=== PATIENT | female | born 1990 | race Caucasian/White ===

== ENCOUNTER 2017-07-08 06:54 | Observation (INO) | payer OTHER ==
[~2017-07-08] VITALS: Ht 165.1 cm; Wt 55.7 kg
[~2017-07-08 06:54] MED LIST: NOHOMEMEDS
[2017-07-08 07:22] LABS: HEMATOCRIT 34.8 % (36.0-46.0); MCH 30.1 PG (29.0-34.0); MCHC 33.9 G/DL (30.0-36.0); MCV 88.8 FL (83-99); MEAN PLAT.VOLUME 10.8 uM^3 (9.5-12.4); PLATELET COUNT 222 K/uL (156-360); RBC DIS.WIDTH-CV 12.1 % (11.8-14.6); RBC DIS.WIDTH-SD 39.3 % (39-53); RED BLOOD COUNT 3.92 M/uL (3.80-5.20); WHITE BLOOD COUNT 7.6 K/uL (4.1-10.2)
[2017-07-08 07:29] LABS: ADD MIUA? YES; BILIRUBIN NEGATIVE; BLOOD NEGATIVE; COLOR YELLOW ((YELLOW)); GLUCOSE (STRIP) NEGATIVE; KETONES NEGATIVE; LEUKOCYTES SMALL; NITRITE NEGATIVE; PROTEIN (STRIP) 30; SPECIFIC GRAVITY 1.028 (1.000-1.030); UROBILINOGEN 0.2 MG/DL (0.2-1.0)
[2017-07-08 07:56] LABS: ANION GAP 8 MEQ/L (2-14); CHLORIDE 104 MEQ/L (99-109); GFR ESTIMATE (CALCULATED) > 59 mL/min/; GLUCOSE 102 mg/dL (70-99); POTASSIUM 3.4 MEQ/L (3.7-5.4); SAMPLE HEMOLYSIS CHECK 0; SAMPLE ICTERIC CHECK 0; SAMPLE LIPEMIA CHECK 0; SODIUM 136 MEQ/L (136-147); UREA NITROGEN (BUN) 15 mg/dL (9-23)
[2017-07-08 08:39] LABS: QUANTITATIVE HCG 19183.6 MIU/ML
[2017-07-08 08:42] LABS: BACTERIA 1+ /HPF; CASTS NONE SEEN /LPF; CRYSTALS NONE SEEN; EPITHELIAL CELLS 1+ /HPF; MUCUS NONE SEEN /LPF; RED BLOOD CELLS NONE SEEN /HPF (0-5); UCUL ADDED? NO; WHITE BLOOD CELLS 0-5 /HPF (0-5)
[2017-07-08] MEDS ORDERED: PRENATAL TABLE1 EAC3 PO (10:17)
[2017-07-08 14:46] VITALS: BP 98/68
[2017-07-08 20:35] VITALS: BP 101/58
[2017-07-08 23:46] VITALS: BP 111/69
[2017-07-09 07:22] VITALS: BP 101/53
[2017-07-09] MEDS ORDERED: CEPHALEXIN500 MG PO (10:34)
== END 2017-07-09 12:26 | disposition home or self-care (01) ==
LOC: EME 06:54 → EDOF 11:41 → ENRESERV 11:54 → EDOF 12:07 → 5WEST 13:41 → ENPENDDIS 07-09 → 5WEST 07-09 12:26
DX: O26.831 Pregnancy related renal disease, first trimester (principal); N13.30 Unspecified hydronephrosis; N20.0 Calculus of kidney; Z87.442 Personal history of urinary calculi; R30.0 Dysuria; Z3A.01 Less than 8 weeks gestation of pregnancy
CPT/HCPCS: 76770; 76801; 80048; 81003; 82365 90; 84702; 85027; 87077; 87086; 87186; 99281; 99285; G0378; J1885; J2270; J2405; J7030; Q0169

== ENCOUNTER 2018-02-23 08:30 | Inpatient (IN) | payer OTHER ==
[2018-02-23] VITALS (8 sets, daily range): BP systolic 105–117; BP diastolic 59–80
[~2018-02-23] VITALS: Ht 165.1 cm; Wt 70.8 kg
[~2018-02-23 08:30] MED LIST changes: +CEPHALEXIN500 MG PO; +PRENATAL TABLE1 EAC3 PO; +TUMS ULTRA ST1177 MG PO
[2018-02-23 10:27] LABS: BASOPHIL (%) 0.4 % (0-1); EOSINOPHIL (%) 0.8 % (0-5); EOSINOPHIL COUNT 0.1 K/uL (0-0.3); HEMATOCRIT 27.6 % (36.0-46.0); IMMATURE GRANULOCYTE (%) 0.5 % (0.0-0.7); LYMPHOCYTE COUNT 1.7 K/uL (1.0-2.8); MCH 28.7 PG (29.0-34.0); MCHC 32.6 G/DL (30.0-36.0); MCV 87.9 FL (83-99); MONOCYTE (%) 7.9 % (3-12); MONOCYTE COUNT 0.6 K/uL (0-0.8); NEUTROPHIL (%) 67.4 % (45-76); NRBC (%) 0.7 /100 WBC (0-0); PLATELET COUNT 141 K/uL (156-360); RBC DIS.WIDTH-CV 13.2 % (11.8-14.6); RBC DIS.WIDTH-SD 41.4 % (39-53); RED BLOOD COUNT 3.14 M/uL (3.80-5.20); WHITE BLOOD COUNT 7.4 K/uL (4.1-10.2)
[2018-02-24 03:00] VITALS: BP 108/63
[2018-02-24 06:05] LABS: BASOPHIL (%) 0.4 % (0-1); EOSINOPHIL (%) 0.8 % (0-5); EOSINOPHIL COUNT 0.1 K/uL (0-0.3); HEMATOCRIT 26.9 % (36.0-46.0); HEMOGLOBIN 8.7 G/DL (11.9-15.5); IMMATURE GRANULOCYTE (%) 0.2 % (0.0-0.7); LYMPHOCYTE (%) 20.4 % (15-42); LYMPHOCYTE COUNT 1.8 K/uL (1.0-2.8); MCH 28.8 PG (29.0-34.0); MCHC 32.3 G/DL (30.0-36.0); MCV 89.1 FL (83-99); MONOCYTE (%) 6.1 % (3-12); MONOCYTE COUNT 0.6 K/uL (0-0.8); NEUTROPHIL (%) 72.1 % (45-76); NEUTROPHIL COUNT 6.5 K/uL (1.8-6.4); PLATELET COUNT 168 K/uL (156-360); RBC DIS.WIDTH-CV 13.3 % (11.8-14.6); RBC DIS.WIDTH-SD 43.1 % (39-53); RED BLOOD COUNT 3.02 M/uL (3.80-5.20)
[2018-02-24 19:36] VITALS: BP 127/60
[2018-02-24 22:46] VITALS: BP 110/60
[2018-02-25 03:39] VITALS: BP 107/65
[2018-02-25 07:14] VITALS: BP 100/52
[2018-02-25] MEDS ORDERED: CHROMAGEN,1 CAPSULE PO (09:45)
[2018-02-25] MEDS ORDERED: ENDOCET 5-3251 EACH PO (09:45)
[2018-02-25] MEDS ORDERED: IBUPROFEN800 MG PO (09:45)
[2018-02-25 10:44] VITALS: BP 104/55
[2018-02-25 15:04] VITALS: BP 116/65
== END 2018-02-25 17:12 | disposition home or self-care (01) | DRG 765 ==
LOC: 2WEST 08:30 → 2SOUTH 11:28 → 2WEST 02-25 17:12
PROVIDERS: Obstetrics & Gynecology
PROC: 10D00Z1 Extraction of Products of Conception, Low, Open Approach (ICD-10-PCS; principal; 2018-02-23)
DX: O32.1XX0 Maternal care for breech presentation, not applicable or unspecified (principal); O36.5930 Maternal care for other known or suspected poor fetal growth, third trimester, not applicable or unspecified; O69.81X0 Labor and delivery complicated by cord around neck, without compression, not applicable or unspecified; O99.824 Streptococcus B carrier state complicating childbirth; O99.02 Anemia complicating childbirth; D62 Acute posthemorrhagic anemia; D50.9 Iron deficiency anemia, unspecified; Z3A.39 39 weeks gestation of pregnancy; Z37.0 Single live birth
CPT/HCPCS: 85025; 86850; 86900; 86901; 88307; J0690; J1885; J2270; J2274; J2405; J3010; J7120; S0020